=== PATIENT | male | born 1935 | race African-American/Black ===

== ENCOUNTER 2016-04-03 13:41 | Outpatient (CLI) | payer MEDICARE ==
--- NOTE | 2016-04-03 19:34 | RAD ---
RIGHT TOES 04/03/16 The bones are osteoporotic which could mask subtle findings. Nevertheless, there was no sign of bony destruction in the great toe or other toes to allow a plain film diagnosis of osteomyelitis. All julio eder currently appeared intact. IMPRESSION: No acute finding. POS: HOME
== END 2016-04-03 13:42 | disposition home or self-care (01) ==
LOC: BURMRI 13:41 → BURRAD 13:42
PROVIDERS: ATTEND Podiatrist Foot & Ankle Surgery
DX: M86.171 Other acute osteomyelitis, right ankle and foot (principal)

== ENCOUNTER 2016-04-10 15:54 | Outpatient (CLI) | payer MEDICARE ==
--- NOTE | 2016-04-11 07:18 | MRI ---
MRI LEFT FOREFOOT WITHOUT CONTRAST 04/10/16 HISTORY: Osteomyelitis. COMPARISON: Toe radiograph 04/03/16. FINDINGS: Multiplanar and multisequence MRI right forefoot without contrast. FINDINGS: There is loss of normal T1 signal within the great toe distal phalanx throughout the distal phalanx from the base to the tuft. There is some irregularity overlying the nail bed. There are infarcts of the great toe metatarsal as well as proximal phalanx. There are also infarcts of the second and thir d metatarsals. There is degenerative disease of the calcaneocuboid joint. There is some stress edema of the base of the fifth metatarsal. Evaluation for abscess is limited without intravenous contrast. Flexor hallucis longus is midline. S esamoids are unremarkable. The muscles are mildly atrophic. IMPRESSION: 1. Osteomyelitis great toe distal phalanx from the base to the tuft. 2. Numerous infarcts of the forefoot including the first, second and third metatarsals as well as proximal phalanx of the great toe. 3. Stress edema of the fifth metatarsal base along with degenerative disease of the calcaneocub oid joints. 4. Lisfranc interval is maintained. 5. Erosions of the dorsal and plantar aspects of the second proximal phalanx. May be sequela of prior inflammatory arthropathy or infectious process. Small infarcts are also within the differenti al. POS: OFF
== END 2016-04-10 15:55 | disposition home or self-care (01) ==
LOC: BURMRI 15:54
PROVIDERS: ATTEND Podiatrist Foot & Ankle Surgery
DX: M86.171 Other acute osteomyelitis, right ankle and foot (principal)

== ENCOUNTER 2016-05-03 15:31 | Emergency (ER) | payer MEDICARE ==
[~2016-05-03 15:31] MED LIST: Iopamidol 370 76% 100 ML VIAL ONE
[2016-05-03 16:29] LABS: #Eosinphils 0.1 thou/uL (0.0-0.7); #Lymphocytes 0.4 thou/uL (1.20-3.40); #Monocytes 0.3 thou/uL (0.11-0.59); #Neutrophils 1.9 thou/uL (1.40-6.50); %Basophils 1.7 % (0.0-1.0); %Eosinophils 2.9 % (0.0-10.0); %Lymphocytes 15.9 % (21.0-51.0); %Neutrophils 67.5 % (42.0-75.0); Hemoglobin 9.1 g/dL (14.0-18.0); Mean Corpuscular HGB CONC 30.9 g/dL (32.0-36.0); Mean Corpuscular Hemoglobin 24.4 pg (27.0-31.0); Mean Corpuscular Volume 78.8 fl (80.0-94.0); Mean Platelet Volume 5.3 fL (7.4-10.4); Platelet Count 148 thou/uL (130-400); RBC Distribution Width 13.9 % (11.5-14.5); Red Blood Cell (RBC) Count 3.73 mill/uL (4.70-6.10); White Blood Cell (WBC) Count 2.8 thou/uL (4.8-10.8)
[2016-05-03 16:35] LABS: ALT (SGPT) 33 U/L (0-55); AST (SGOT) 31 U/L (5-34); Albumin 3.2 g/dL (3.4-4.8); Alkaline Phosphatase 128 U/L (40-150); Anion Gap 13 mmol/L (10-20); BUN (Urea Nitrogen) 23 mg/dL (8.4-25.7); Bilirubin, Total 0.4 mg/dL (0.2-1.2); Calc. Creatinine Clearance 0 mL/min (70-130); Calcium 8.7 mg/dL (7.8-10.44); Carbon Dioxide 27 mmol/L (23-31); Chloride 100 mmol/L (98-107); Estimated GFR-MDRD Greater than 90; Globulin 4.4 g/dL (2.4-3.5); Glucose 152 mg/dL (83-110); Potassium 4.5 mmol/L (3.5-5.1); Protein, Total 7.6 g/dL (5.8-8.1); Sodium 135 mmol/L (136-145)
[2016-05-03 17:20] LABS: MDiff Complete? YES; Microcytosis SLIGHT = 6-15 cells (100X) (0-5/hpf); Ovalocytes MODERATE= 6-15 cells (100X) (0-1/hpf); PLT Morphology Comment Appears Adequate; Polychromasia SLIGHT = 2-3 cells (100X) (0-2/hpf)
[2016-05-03] MEDS ORDERED: Sulfameth/Trimethoprim DS 800-160mg TAB ONE (17:53)
[2016-05-03] MEDS ORDERED: Clindamycin 150 MG CAP ONE ×2 (17:53→17:59)
--- NOTE | 2016-05-03 18:44 | CT ---
CT OF THE RIGHT FOOT WITH CONTRAST: 05/03/16 COMPARISON: None. HISTORY: Tenderness in the right foot. Evaluate for abscess. Patient has had a history of peripheral vascular disease and infection of the toes for one month. More drainage is seen recently. TECHNIQUE: Multiple contiguous axial images were obtained in a CT of the right foot with contrast. Sagittal and coronal reformats were performed. FINDINGS: There is diffuse soft tissue swelling of the foot. No focal fluid collection is seen in the soft tis sues of the foot. There appears to be a wound over the distal phalanx of the great toe. No significant osseous erosion is seen on this exam to suggest osteomyelitis. No fracture or disloca tion are seen. There is diffuse osteopenia. IMPRESSION: Diffuse soft tissue swelling without focal fluid collection identified. POS: MARC
[2016-05-04] MEDS ORDERED: Iopamidol 200 41% 50 ML VIAL FS ONE (09:00)
== END 2016-05-03 18:03 | disposition home or self-care (01) ==
LOC: BURERS 15:31
DX: L03.115 Cellulitis of right lower limb (principal); E11.9 Type 2 diabetes mellitus without complications; E78.5 Hyperlipidemia, unspecified; I10 Essential (primary) hypertension; Z87.891 Personal history of nicotine dependence
CPT/HCPCS: 80053; 85025; 87070; 87205

== ENCOUNTER 2016-05-22 15:50 | Emergency (ER) | payer MEDICARE ==
[2016-05-22] MEDS ORDERED: methylPREDNISolone Sod Succ/PF 125 MG/2 ML VIAL ONE (16:51)
[2016-05-22 17:02] LABS: PTT 34.2 SEC (22.9-36.1)
[2016-05-22 17:04] LABS: D-Dimer Test 2.75 *mcg/mL (0.27-0.43)
[2016-05-22 17:09] LABS: #Basophils 0.1 thou/uL (0.0-0.2); #Lymphocytes 0.4 thou/uL (1.20-3.40); #Monocytes 0.2 thou/uL (0.11-0.59); #Neutrophils 4.1 thou/uL (1.40-6.50); %Basophils 1.2 % (0.0-1.0); %Eosinophils 0.1 % (0.0-10.0); %Lymphocytes 7.6 % (21.0-51.0); %Monocytes 4.6 % (0.0-10.0); %Neutrophils 86.6 % (42.0-75.0); Elliptocytes SLIGHT = 2-5 cells (100X) (0-1/hpf); Hemoglobin 9.7 g/dL (14.0-18.0); Hypochromia SLIGHT = 6-15 cells (100X) (0-5/hpf); MDiff Complete? YES; Mean Corpuscular HGB CONC 29.9 g/dL (32.0-36.0); Mean Corpuscular Hemoglobin 23.9 pg (27.0-31.0); Mean Corpuscular Volume 80.1 fl (80.0-94.0); Mean Platelet Volume 5.9 fL (7.4-10.4); Platelet Count 223 thou/uL (130-400); RBC Distribution Width 14.3 % (11.5-14.5); Red Blood Cell (RBC) Count 4.04 mill/uL (4.70-6.10); Small Platelets SLIGHT; White Blood Cell (WBC) Count 4.7 thou/uL (4.8-10.8)
[2016-05-22 17:11] LABS: ALT (SGPT) 62 U/L (0-55); AST (SGOT) 59 U/L (5-34); Albumin 3.5 g/dL (3.4-4.8); Alkaline Phosphatase 106 U/L (40-150); Anion Gap 17 mmol/L (10-20); BUN (Urea Nitrogen) 58 mg/dL (8.4-25.7); Bilirubin, Total 0.5 mg/dL (0.2-1.2); Calc. Creatinine Clearance 0 mL/min (70-130); Calcium 9.1 mg/dL (7.8-10.44); Carbon Dioxide 25 mmol/L (23-31); Chloride 98 mmol/L (98-107); Estimated GFR-MDRD 37; Globulin 5.1 g/dL (2.4-3.5); Glucose 222 mg/dL (83-110); Potassium 4.9 mmol/L (3.5-5.1); Protein, Total 8.6 g/dL (5.8-8.1); Sodium 135 mmol/L (136-145)
[2016-05-22 17:13] LABS: CKMB 5.3 ng/mL (0-6.6); Troponin I Less than 0.010 ng/mL (< 0.028)
[2016-05-22] MEDS ORDERED: cefTRIAXone\\ROCEPHIN 1 GM VIAL ONE (17:26)
[2016-05-22] MEDS ORDERED: Sodium Chloride 0.9% 100 ML ONE (17:27)
--- NOTE | 2016-05-22 22:30 | RAD ---
PORTABLE CHEST 05/22/16 An AP portable film at 1615 is compared with a 11/14/13 study. The heart is normal in size for age and AP projection. Median sternotomy sutures are present from pr ior surgery. There is a right lower lobe infiltrate consistent with pneumonia. A small amount of ple ural effusion is suggested here as well. COPD is suggested overall. Degenerative changes are seen in the right shoulder with narrowing of the acromiohumeral space that could signify rotator cuff thinn ing. IMPRESSION: Right lower lobe pneumonia. Code T POS: HOME
== END 2016-05-22 18:06 | disposition short-term general hospital (02) ==
LOC: BURERS 15:50
DX: J18.9 Pneumonia, unspecified organism (principal); E86.0 Dehydration; I25.10 Atherosclerotic heart disease of native coronary artery without angina pectoris; E11.9 Type 2 diabetes mellitus without complications; D64.9 Anemia, unspecified; I10 Essential (primary) hypertension; M19.90 Unspecified osteoarthritis, unspecified site; J44.9 Chronic obstructive pulmonary disease, unspecified; E78.5 Hyperlipidemia, unspecified; Z86.718 Personal history of other venous thrombosis and embolism; Z79.899 Other long term (current) drug therapy
CPT/HCPCS: 71010; 80053; 82553; 83605; 84443; 84484; 85025; 85379; 85730; 87040; 93005; 94644; 96374; J0696; J2930; J7050

== ENCOUNTER 2016-05-29 15:00 | Inpatient (IN) | payer MEDICARE ==
[2016-05-29] MEDS ORDERED: traMADol HCl 50 MG TAB PO PRN (15:57)
[2016-05-29] MEDS ORDERED: Acetaminophen 325 MG TAB PO PRN (15:57)
[2016-05-29] MEDS: Cefdinir 300 MG CAP PO SCH (20:51)
[2016-05-30] MEDS: Tamsulosin HCl 0.4 MG CAP PO SCH (08:51)
[2016-05-30] MEDS: Simvastatin 20 MG TAB PO SCH (08:51)
[2016-05-30] MEDS: Carvedilol 3.125 MG TAB PO SCH (08:51)
[2016-05-30] MEDS: Cefdinir 300 MG CAP PO SCH ×2 (08:52→20:06)
--- NOTE | 2016-05-30 09:10 | HP ---
DATE OF ADMISSION: 05/29/2016 PRIMARY CARE PHYSICIAN: Out of town physician. ADMITTING PHYSICIAN: Dr. Tea Burkett CHIEF COMPLAINT: Inpatient rehab for PT, OT and wound care. 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 He presented to [facility] for respiratory distress with severe anemia, neutropenia, poor nutrition, severe debilitation and acute renal insufficiency on 05/22/2016. He was placed on broad-spectrum IV antibiotics to treat for pneumonia. He was given adequate hydration and subsequently improved his renal function. He was referred to Wound Care due to his multiple pressure ulcers and longstanding ulcer on the right great toe. He was referred for Dr. Rutledge and made recommendation regarding anticoagulation, it was deferred due to life-threatening anemia to which he required blood transfusion x2, also IVC filter was considered, but due to his frailty, poor lung function and multiple comorbid conditions it was not instituted then. He started physical therapy addressing weakness of his upper extremities. He was transferred on 05/29/2016 to [facility] for inpatient rehab to address severe deconditioning after prolonged hospitalization due to right lower lobe pneumonia, and DVT on bilateral lower extremities. He was seen this afternoon, he denies any pain, shortness of breath, he is eating well and hoping to go home in the next week or so. PAST MEDICAL HISTORY: 1. Coronary artery disease. 2. Diabetes. 3. Hypertension. 4. Peripheral arterial disease with left smevy-zek-larv amputation. 5. 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 6. History of deep venous thrombosis with IVC placed in 2009. 7. History of bilateral pulmonary emboli. 8. Chronic obstructive pulmonary disease. 9. Pancytopenia. 10. History of atrial fibrillation. PAST SURGICAL HISTORY: 1. Cholecystectomy. 2. Multiple surgeries for rotator cuff repair. 3. Left fem/pop bypass in [place]. 4. IVC filter placement in 2009. 5. Left rwifo-rnx-oasc amputation. FAMILY HISTORY: Negative for early coronary artery disease or lung disease. ALLERGIES: PENICILLIN. SOCIAL HISTORY: Denies alcohol, tobacco or illicit drug use. The patient lives at home in [place] with spouse and 4 grandchildren. He ambulates with prosthesis, but has not done so in several months. REVIEW OF SYSTEMS: GENERAL: Negative for fever, negative for chills. HEENT: Positive for blurring of vision, negative for sore throat. RESPIRATORY: Positive for cough, occasional shortness of breath. CARDIOVASCULAR: Negative for chest pain, negative for swelling. GI: Negative for nausea, vomiting. Negative for diarrhea. NEUROLOGIC: Positive for weakness, positive for gait instability. PSYCH: No anxiety, no depression. DERMATOLOGY: Negative for rashes or skin lesions. HOME MEDICATIONS: 1. Amiodarone 200 mg daily. 2. Tylenol 650 mg q.4 h. 3. Protonix 40 mg daily. 4. DuoNeb q.6 h. 5. Coreg 3.125 mg daily. 6. Tramadol 50 mg q.i.d. p.r.n. for pain. 7. Flomax 0.4 mg daily. 8. Lipitor 20 mg daily. 9. Zoloft 100 mg at bedtime. PHYSICAL EXAMINATION: VITAL SIGNS: Blood pressure 185/79, temperature 98.4, pulse 73, respiratory rate 24, O2 sat 95% on 3 liters. GENERAL: The patient is cachectic, appears older than stated age. Not in respiratory distress. HEENT: Normocephalic and atraumatic. Pupils are equally reactive to light. No conjunctival injection. Dry mucous membranes. No tonsillopharyngeal congestion. NECK: Supple. Negative for lymphadenopathy. Negative for murmur. CHEST AND LUNGS: Symmetrical expansion. Positive for use of accessory muscles. Positive for coarse breath sounds. HEART: Regular rate and rhythm. Negative for murmur. ABDOMEN: Flat, soft, nontender. Normoactive bowel sounds. No rebound tenderness. EXTREMITIES: Left hecnd-ocx-bmnn amputation. Right dorsal great toe has a dry gangrenous ulcer measuring about 2.8 x 2 centimeters, wound bed has black eschar. SKIN: Presence of pressure ulcer stage I on sacrum. Left hip has a stage II pressure ulcer measuring about 0.5 x 0.5 centimeters. Right hip has a suspect pressure ulcer with hyperpigmentation, skin appears intact, measuring about 0.4 x 0.4 centimeters. Right dorsal foot has severe dry skin with excoriations. PSYCH: Appropriate affect and demeanor. LABORATORY: Labs were reviewed. ASSESSMENT: 1. Physical deconditioning. 2. History of community acquired right lower lobe pneumonia. 3. Bilateral lower extremity deep venous thrombosis. 4. Cachexia. 5. 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 6. Pancytopenia. 7. Coronary artery disease. 8. Diabetes mellitus. 9. Hypertension. 10. Peripheral arterial disease with left todut-bcb-ohfk amputation. 11. Multiple decubitus ulcers. 12. Right toe osteomyelitis. PLAN: 1. Continue treatment for community acquired pneumonia. 2. Continue to monitor and treat anemia. 3. Improve nutrition. 4. Continue neutropenic precautions. 5. Reconcile present medications. 6. PT and, OT evaluate and treat. 7. Wound Care to evaluate and address pressure ulcers. 8. Case Management referral to assist with discharge planning. 9. Anticipate discharge in 1-2 weeks with Home Health to continue physical therapy. MTDD
[2016-05-31 06:53] LABS: ALT (SGPT) 58 U/L (0-55); AST (SGOT) 32 U/L (5-34); Albumin 2.5 g/dL (3.4-4.8); Alkaline Phosphatase 80 U/L (40-150); Anion Gap 8 mmol/L (10-20); BUN (Urea Nitrogen) 9 mg/dL (8.4-25.7); Bilirubin, Total 0.5 mg/dL (0.2-1.2); Calc. Creatinine Clearance 68 mL/min (70-130); Calcium 8.2 mg/dL (7.8-10.44); Carbon Dioxide 38 mmol/L (23-31); Chloride 98 mmol/L (98-107); Estimated GFR-MDRD Greater than 90; Globulin 3.3 g/dL (2.4-3.5); Glucose 139 mg/dL (83-110); Potassium 3.2 mmol/L (3.5-5.1); Protein, Total 5.8 g/dL (5.8-8.1); Sodium 141 mmol/L (136-145)
[2016-05-31 06:57] LABS: #Lymphocytes 0.6 thou/uL (1.20-3.40); #Monocytes 0.3 thou/uL (0.11-0.59); #Neutrophils 1.7 thou/uL (1.40-6.50); %Basophils 1.2 % (0.0-1.0); %Eosinophils 1.7 % (0.0-10.0); %Lymphocytes 23.7 % (21.0-51.0); %Monocytes 11.7 % (0.0-10.0); %Neutrophils 61.7 % (42.0-75.0); Anisocytosis SLIGHT = 6-15 cells (100X) (0-5/hpf); Hemoglobin 8.2 g/dL (14.0-18.0); Hypochromia SLIGHT = 6-15 cells (100X) (0-5/hpf); MDiff Complete? YES; Mean Corpuscular HGB CONC 30.6 g/dL (32.0-36.0); Mean Corpuscular Hemoglobin 25.4 pg (27.0-31.0); Mean Platelet Volume 5.9 fL (7.4-10.4); PLT Morphology Comment Appears Decreased; Platelet Count 114 thou/uL (130-400); RBC Distribution Width 16.2 % (11.5-14.5); Red Blood Cell (RBC) Count 3.25 mill/uL (4.70-6.10); White Blood Cell (WBC) Count 2.7 thou/uL (4.8-10.8)
[2016-05-31] MEDS: Carvedilol 3.125 MG TAB PO SCH (08:44)
[2016-05-31] MEDS: Simvastatin 20 MG TAB PO SCH (08:44)
[2016-05-31] MEDS: Tamsulosin HCl 0.4 MG CAP PO SCH (08:44)
[2016-05-31] MEDS: Cefdinir 300 MG CAP PO SCH ×2 (08:44→20:02)
[2016-05-31] MEDS ORDERED: Potassium Chloride 20 MEQ TAB PO SCH (13:30)
[2016-06-01] MEDS: Cefdinir 300 MG CAP PO SCH ×2 (08:37→20:16)
[2016-06-01] MEDS: Simvastatin 20 MG TAB PO SCH (08:37)
[2016-06-01] MEDS: Carvedilol 3.125 MG TAB PO SCH (08:37)
[2016-06-01] MEDS: Tamsulosin HCl 0.4 MG CAP PO SCH (08:37)
[2016-06-01 22:35] VITALS: BMI 16.0
[2016-06-02 07:25] LABS: Anion Gap 10 mmol/L (10-20); BUN (Urea Nitrogen) 15 mg/dL (8.4-25.7); Calc. Creatinine Clearance 60 mL/min (70-130); Carbon Dioxide 34 mmol/L (23-31); Chloride 102 mmol/L (98-107); Estimated GFR-MDRD Greater than 90; Glucose 176 mg/dL (83-110); Potassium 3.9 mmol/L (3.5-5.1); Sodium 142 mmol/L (136-145)
[2016-06-02] MEDS: Tamsulosin HCl 0.4 MG CAP PO SCH (09:05)
[2016-06-02] MEDS: Simvastatin 20 MG TAB PO SCH (09:05)
[2016-06-02] MEDS: Cefdinir 300 MG CAP PO SCH ×2 (09:05→20:35)
[2016-06-02] MEDS: Carvedilol 3.125 MG TAB PO SCH (09:06)
[2016-06-02] MEDS ORDERED: traMADol HCl 50 MG TAB PO PRN (14:02)
[2016-06-02] MEDS ORDERED: Furosemide 40 MG TAB PO SCH (17:45)
[2016-06-03] MEDS: Cefdinir 300 MG CAP PO SCH ×2 (09:14→20:28)
[2016-06-03] MEDS: Carvedilol 3.125 MG TAB PO SCH (09:15)
[2016-06-03] MEDS: Furosemide 40 MG TAB PO SCH ×2 (09:15→14:28)
[2016-06-03] MEDS: Tamsulosin HCl 0.4 MG CAP PO SCH (09:15)
[2016-06-03] MEDS: Simvastatin 20 MG TAB PO SCH (09:15)
[2016-06-04] MEDS: Furosemide 40 MG TAB PO SCH (08:23)
[2016-06-04] MEDS: Cefdinir 300 MG CAP PO SCH ×2 (08:23→20:15)
[2016-06-04] MEDS: Carvedilol 3.125 MG TAB PO SCH (08:23)
[2016-06-04] MEDS: Simvastatin 20 MG TAB PO SCH (08:24)
[2016-06-04] MEDS: Tamsulosin HCl 0.4 MG CAP PO SCH (08:24)
[2016-06-05] MEDS: Tamsulosin HCl 0.4 MG CAP PO SCH (08:37)
[2016-06-05] MEDS: Furosemide 40 MG TAB PO SCH (08:37)
[2016-06-05] MEDS: Carvedilol 3.125 MG TAB PO SCH (08:37)
[2016-06-05] MEDS: Cefdinir 300 MG CAP PO SCH ×2 (08:37→21:31)
[2016-06-05] MEDS: Simvastatin 20 MG TAB PO SCH (08:37)
[2016-06-06 06:57] VITALS: BP 140/64; TEMP 98.1
[2016-06-06] MEDS: Carvedilol 3.125 MG TAB PO SCH (09:07)
[2016-06-06] MEDS: Cefdinir 300 MG CAP PO SCH (09:07)
[2016-06-06] MEDS: Simvastatin 20 MG TAB PO SCH (09:08)
[2016-06-06] MEDS: Furosemide 40 MG TAB PO SCH (09:09)
[2016-06-06] MEDS: Tamsulosin HCl 0.4 MG CAP PO SCH (09:09)
--- NOTE | 2016-06-10 08:26 | PRG ---
DATE OF SERVICE: 06/03/2016 PRIMARY CARE PHYSICIAN: Out of town physician. ADMITTING PHYSICIAN: Dr. Tea Burkett SUBJECTIVE: The patient complained of shortness of breath, with wheezing and tight breath sounds, L asix was given yesterday and a DuoNeb treatment, he improved after breathing treatment. His oxygen was increased to 3 liters and sats improved to about 93-96%. The patient is refusing pureed diet as recommended by dietitian. He is participating with physical therapy, but still requires assistance with feeding and transferring. He denies any chest pain, shortness of breath or abdominal pain. H e is requesting for an early discharge. OBJECTIVE: VITAL SIGNS: Blood pressure of 143/62, temperature 97.8, pulse of 83, respiratory rate 16, O2 sat 9 4% at 3 liters. GENERAL: The patient is awake, oriented x2, not in distress, appears older than stated age, cachect ic. HEENT: Normocephalic, atraumatic. Pupils equally reactive to light. Pale conjunctivae. Wet mucou s membrane. NECK: Supple. Negative for lymphadenopathy. CHEST AND LUNGS: Symmetrical expansion, positive for use of accessory muscles, diminished breath so unds. HEART: Regular rate and rhythm. Negative for murmur. ABDOMEN: Flat, soft, nontender, normoactive bowel sounds. EXTREMITIES: Left below the knee amputation, right dorsal toe with dry gangrenous ulcer measuring 2 .8 x 2 cm, wound bed has black eschar. PSYCHIATRIC: Appropriate affect and demeanor. LABORATORY: Reviewed. ASSESSMENT: 1. Deconditioned secondary to prolonged hospitalization. 2. History of community-acquired right lower lobe pneumonia. 3. Bilateral lower extremity deep venous thrombosis. 4. Cachexia. 5. Severe chronic anemia due to small bowel AV malformation. 6. Pancytopenia. 7. Coronary artery disease. 8. Diabetes mellitus. 9. Hypertension. 10. Peripheral arterial disease with left kdwve-tkn-kgdr amputation. 11. Multiple decubitus ulcers. 12. Right toe osteomyelitis. PLAN: 1. Continue physical therapy. 2. Continue diet as recommended by dietitian. 3. Continue O2 support to maintain sats above 93%. 4. Improve nutrition. 5. Continue neutropenic precautions. 6. Case management to follow up regarding discharge planning. 7. Anticipate discharge in a few days.
--- NOTE | 2016-06-10 14:27 | DIS ---
DATE OF ADMISSION: 05/29/2016 DATE OF DISCHARGE: 06/06/2016 PRIMARY CARE PHYSICIAN: Out of town. ADMITTING PHYSICIAN: Dr. Burkett. FINAL DIAGNOSES: 1. Physical deconditioning secondary to prolonged hospitalization. 2. History of community-acquired right lower lobe pneumonia. 3. Bilateral lower extremity deep venous thrombosis. 4. Cachexia. 5. 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 6. Pancytopenia. 7. Coronary artery disease. 8. Diabetes mellitus, diet controlled. 9. Hypertension. 10. Chronic obstructive pulmonary disease. 11. Peripheral arterial disease with left mvgzf-ddm-uhwy amputation. 12. Multiple decubitus ulcers. 13. Right toe osteomyelitis. 14. Frail elderly HISTORY OF PRESENT ILLNESS/COURSE IN THE BARRY: Mr. Adams is an unfortunate 81-year-old -[place] gentleman with extensive medical history that includes coronary artery disease, diabetes melli tus, chronic obstructive pulmonary disease, history of bilateral PE with previous IVC filter, chroni c anemia secondary to small bowel arteriovenous malformation and severe peripheral arterial disease with left sooee-ful-wmaj amputation. He presented to [facility] for respiratory distre ss with severe anemia, neutropenia, poor nutrition and severe debilitation with acute renal insuffic iency on 05/22/2016. He was placed on broad spectrum IV antibiotics to treat pneumonia. He was giv en adequate hydration and subsequently improved renal function. He was referred to wound care due t o multiple pressure ulcers, longstanding ulcer on right great toe secondary to osteomyelitis. He wa s referred to Dr. Rutledge and made recommendations regarding anticoagulation, it was deferred due to l leonel threatening anemia, which required blood transfusion x2 units during his stay, also IVC filter w as considered by due to his frailty, poor lung function and multiple comorbid conditions, it was not instituted. Prior to his transfer, he started physical therapy addressing weakness of upper extrem ities. He was admitted to [facility] on 05/29/2016 for inpatient rehab to address sev ere deconditioning due to hospitalization with right lower lobe pneumonia and DVT on bilateral lower extremities. During his stay, we continued treatment for his pneumonia. He had an episode of shor tness of breath with wheezing. His breathing became labored during treatment with physical therapy, his O2 was increased, DuoNeb and Lasix were given and breathing subsequently improved. He particip ated with physical and occupational therapy, may need to improve strength of upper extremity. DISPOSITION: Discharge to home with care of and 3 nephews over the age of 18. [facility] with alf care, physical, occupational, and wound therapy. MEDICATIONS: 1. Omnicef 300 mg 1 tablet b.i.d. for additional 5 days. 2. Lasix 40 mg one half tablet daily. 3. Tylenol 325 mg 1 tablet daily. 4. Coreg 3.125 mg b.i.d. 5. DuoNeb every 6 hours p.r.n. for cough and wheezing. 6. Protonix 40 mg daily. 7. Zoloft 100 mg daily. 8. Simvastatin 20 mg daily. 9. Flomax 0.4 mg daily. 10. Tramadol 50 mg q.i.d. p.r.n. for pain. DIET: Heart and healthy diet. ACTIVITIES: Fall precautions, activity as tolerated with orthopedic limitations [facility] CODE STATUS: Full code. INSTRUCTIONS: Patient is advised to follow up with his primary care physician within 7 days. will call, we will facilitate scheduling the patient.
== END 2016-06-06 15:00 | disposition home health service (06) | DRG 190 ==
LOC: BURMED 15:00
PROVIDERS: ADMIT Family Medicine; ATTEND Family Medicine
DX: J44.0 Chronic obstructive pulmonary disease with (acute) lower respiratory infection (principal); J18.9 Pneumonia, unspecified organism; L89.151 Pressure ulcer of sacral region, stage 1; I82.403 Acute embolism and thrombosis of unspecified deep veins of lower extremity, bilateral; D61.818 Other pancytopenia; R64 Cachexia; E11.52 Type 2 diabetes mellitus with diabetic peripheral angiopathy with gangrene; M86.8X7 Other osteomyelitis, ankle and foot; Z68.1 Body mass index [BMI] 19.9 or less, adult; L89.212 Pressure ulcer of right hip, stage 2; R53.81 Other malaise; Q27.33 Arteriovenous malformation of digestive system vessel; D64.9 Anemia, unspecified; I25.10 Atherosclerotic heart disease of native coronary artery without angina pectoris; I10 Essential (primary) hypertension; J44.9 Chronic obstructive pulmonary disease, unspecified; Z89.512 Acquired absence of left leg below knee; E11.69 Type 2 diabetes mellitus with other specified complication; Z86.711 Personal history of pulmonary embolism; E11.621 Type 2 diabetes mellitus with foot ulcer; L97.519 Non-pressure chronic ulcer of other part of right foot with unspecified severity; I48.91 Unspecified atrial fibrillation; L89.221 Pressure ulcer of left hip, stage 1; R06.00 Dyspnea, unspecified
CPT/HCPCS: 36415; 80048; 80053; 83880; 84134; 85025; 94640; G8981-GP-CM; G8982-GP-CL; G8987-GO-CN; G8988-GO-CM; G8990-GP-CH; G8991-GP-CH; G8996-GN-CK; G8997-GN-CI; J7620